=== PATIENT | male | born 1985 ===

== ENCOUNTER 2019-03-02 14:17 | Outpatient (CLI) | payer OTHER | END 2019-03-02 14:46 | disposition home or self-care (01) | LOC: LAB 14:17 | DX: D69.49 Other primary thrombocytopenia (principal); M51.06 Intervertebral disc disorders with myelopathy, lumbar region; D68.8 Other specified coagulation defects; D50.8 Other iron deficiency anemias; I10 Essential (primary) hypertension; E51.11 Dry beriberi; D68.0 Von Willebrand disease; E56.1 Deficiency of vitamin K ==